=== PATIENT | female | born 1980 | race Caucasian/White ===

== ENCOUNTER → 2017-11-23 17:04 | Outpatient (CLI) | payer OTHER, SELFPAY ==
--- NOTE | 2017-11-23 | DI.MRI.S_ITS ---
PROCEDURE: MR KNEE RT WO CON INDICATIONS: RIGHT KNEE PAIN POST TRAUMA TECHNIQUE: Noncontrast sagittal PD fast spin echo and T2 fast spin echo with fat saturation, sagittal 3-D FLASH with fat saturation; coronal T1 spin echo and PD fast spin echo with fat saturation, and axial PD fast spin echo with fat saturation through the knee. COMPARISON: [facility], , KNEE 3V RIGHT, 08/10/2017, 17:26. FINDINGS: Image quality: Excellent. Menisci: The medial and lateral menisci demonstrate normal morphology and internal signal. The meniscal root ligaments appear intact. Cruciate ligaments: The posterior cruciate ligaments appears intact but the anterior cruciate ligament is disrupted through its middle and superior thirds. Medial structures: The medial collateral ligament appears edematous and mildly thickened, indicating strain or partial tear. The posterior oblique ligament, semimembranosus tendon insertions, oblique popliteal ligament, and meniscocapsular junction appear intact. Visualized portions of the pes anserinus tendons appear normal. No abnormal bursal fluid. Lateral structures: The lateral collateral ligament, long and short heads of the biceps femoris tendon appear intact. The popliteus tendon appears normal; the popliteofibular ligament appears intact. The posterosuperior and anteroinferior popliteomeniscal fascicles appear intact. The arcuate and fabellofibular ligaments appear intact, on either side of the lateral inferior geniculate artery. Iliotibial band appears normal. Anterior structures: The quadriceps and patellar tendons appear intact. Patellar alignment is normal. No femoral trochlear dysplasia or ventral trochlear prominence. No edema in the infrapatellar fat pad. Bones and cartilage: No bone marrow contusions or fractures. The cartilage of the medial and lateral femorotibial compartments, as well as the patellofemoral compartment, appears normal in thickness. Joint space: There is a mild excess of knee joint fluid, significantly diminished with reference to the prior plain film imaging of the knee 08/10/17. No Vital's cyst. Normal appearing synovial plicae are incidentally noted. IMPRESSION: Disruption of the anterior cruciate ligament, through its middle and upper thirds. Strain or partial tear of the medial collateral ligament. Appreciable improvement in previously present large joint effusion from plain film imaging 08/10/17. No fracture or meniscal tear is found. Dictated by: Compa Wagner M.D. on 11/26/2017 at 8:07 Approved by: Compa Wagner M.D. on 11/26/2017 at 8:12
== END ==
PROVIDERS: Visit Provider Nurse Practitioner Family
DX: S83.411A Sprain of medial collateral ligament of right knee, initial encounter (principal); S83.511A Sprain of anterior cruciate ligament of right knee, initial encounter; M25.561 Pain in right knee
CPT/HCPCS: 73721

== ENCOUNTER → 2020-08-24 09:28 | Outpatient (CLI) | payer BC, SELFPAY ==
[2020-08-24 10:05] LABS: COVID19 -Nasal RAPID Negative (Negative)
== END ==
PROVIDERS: Visit Provider Specialist
DX: Z20.822 Contact with and (suspected) exposure to COVID-19 (principal)
CPT/HCPCS: 87635; C9803

== ENCOUNTER 2020-08-25 11:07 | Day surgery (SDC) | payer BC, SELFPAY ==
[2020-08-24 12:32] VITALS: BMI 26.3
[2020-08-25] VITALS (16 sets, daily range): BP systolic 103–160; BP diastolic 47–107; PULSE 62–94; RESP 12–25; TEMP 36.5–36.8; O2SAT 94–100; BMI 26.3
--- NOTE | 2020-08-25 | PATH_ITS ---
[facility] Accession Number: [id number] . 01 Material submitted: . PART A: hemorrhoids - HEMORRHOID POSTERIOR MIDLINE PART B: anus - ANAL FISSURE BIOPSY PART C: hemorrhoids - HEMORRHOID ANTERIOR MIDLINE . 02 Diagnosis: A. Hemorrhoid Posterior Midline: Portion of hemorrhoid x1. Negative for dysplasia or malignancy. . B. Anal Fissure Biopsy: Portions of squamous mucosa and submucosa with patchy inflammation and reactive changes. Negative for dysplasia or malignancy. . C. Hemorrhoid Anterior Midline: Portion of hemorrhoid x1. Negative for dysplasia or malignancy. [facility] 08/31/2020 1324 Local . 02 Electronically signed: . Afshan Mendes MD, Pathologist NPI- [id number] . 01 Gross description: . A. The specimen is received in formalin, labeled hemorrhoids posterior midline, and consists of a 1.2 x 1.0 x 0.5 cm, baxter-tarango, wrinkled mucosal tissue fragment. The margin is inked blue. The specimen is serially sectioned and entirely submitted in cassette A1. B. The specimen is received in formalin, labeled anal fissure, and consists of four irregular baxter fragments of skin and soft tissue measuring 1.2 x 1.2 x 0.4 cm in aggregate. The specimen is entirely submitted in cassette B1. C. The specimen is received in formalin, labeled hemorrhoid anterior midline, and consists of a 1.9 x 1.5 x 0.5 cm, baxter-tarango, wrinkled mucosal tissue fragment. The margin is inked blue. The specimen is serially sectioned and entirely submitted in cassette C1. ([id number]) /Divya 08/28/2020 1547 Local . 02 Pathologist provided ICD-10: K64.9 . 02 CPT . 107970, 689126, 333079 Performed at: 01 [facility] [address] [place] [address], [place], [place] [id number] MD Iron Walsh MD Phone: [phone] Performed at: 02 [facility] [address] [place], [place] [id number] MD Anne Horan MD Phone: [phone]
[2020-08-25] MEDS: LACTATED RINGERS 1,000 ML 100 ML IV ×2 (11:58→14:56)
[2020-08-25] MEDS: ACETAMINOPHEN 325 MG TABLET 975 MG PO (12:53)
--- NOTE | 2020-08-25 13:02 | SUR.OPER ---
Prone on padded OR bed, head in foam head support, gel chest rolls, gel pad under knees, pillow under lower legs, toes free of pressure, arms secured on padded arm boards at <90 degrees abduction. Safety belt at thigh.
--- NOTE | 2020-08-25 13:28 | PM.PREOP ---
Pre-operative Note COVID-19 COVID-19 status: Negative Result date/Date tested (Pos, Neg/Pending): 08/24/20 Interval Note History & Physical reviewed/Exam performed by Physician: Yes Changes to H&P: Yes H&P completed within 30 days and has changed as indicated here:: Patient patient would rather not have a lateral insert and a sphincterotomy unless it is absolutely necessary. I explained to her that it is an operation that is probably never absolutely necessary. I would evaluate her however. She expressed desire unless absolutely necessary to continue medication and admitting that she may just be overly sensitive to pain. Explained to her that she would have to tolerate it and there is very little I could do other than wait for this to heal. She appeared to understand
[2020-08-25] MEDS: BUPIVACAINE 0.5% W/ EPI (PF) 30 ML VIAL INJ (14:10)
[2020-08-25] MEDS: DIBUCAINE 1% OINT 28 GM 1 APPLIC TOP (14:11)
--- NOTE | 2020-08-25 14:31 | PM.OP.1 ---
Operative Date/Time/Diagnoses Date of procedure: 08/25/20 Time of procedure: 14:31 Pre-op diagnosis: Anal pain severe. Posterior midline fissure. Post-op diagnosis: same (Internal hemorrhoids with possible recent thrombosis) Procedure & Clinicians Procedure: Fissurectomy and 2 column hemorrhoidectomy Same procedure as scheduled: Yes Indications: Patient with persistent severe pain despite treatment with nifedipine cream for an anal fissure. She was brought to the OR to rule out other pathology. Click Yes if Unassisted: Yes Anesthesia Type: General Operative Notes Findings: Two large columns of hemorrhoids that may have had some fairly recent thrombosis. These were excised it. There were located in the anterior and posterior midline. Patient also had a deep posterior midline anal fissure. There was exposed muscle in the base. Closure Type: not applicable Specimen(s): other (Two columns of hemorrhoids. Edges of fissure sent as fissure biopsies.) Prosthetic devices, grafts, tissues, transplants, or devices: None Estimated Blood Loss (mL): 50 Blood products transfused: none Procedure in detail: Patient was placed kerri-knife prone on the operating room table after undergoing general endotracheal anesthesia. She was prepped and draped in the usual fashion. Patient had obvious hemorrhoidal disease visible. Digital exam was remarkable only for some discrete thickening in the posterior midline and the visible hemorrhoids. There was no induration no palpable mass. [place] circular exam revealed 2 large hemorrhoids that may have had thrombosis within the last few weeks. They were quite large and just inside the anal verge. The posterior midline hemorrhoid was associated with the edge of the fissure. The fissure was quite deep and had visible muscle fibers across it. I began by lifting the posterior midline hemorrhoid off the underlying tissues and excising it. The defect was closed with a running 2 0 Vicryl suture. I excised the edge of the fissure and submitted it as fissure biopsy. The fissure was then closed with a running suture of Vicryl as well. There was a similar hemorrhoid without fissure in the anterior midline which was excised and closed in identical fashion to the 1st. No other pathology was seen. There were some other smaller internal hemorrhoids but I chose not to remove those at this time. They did not appear to have evidence of thrombosis. Local anesthetic was infiltrated in the area of the hemorrhoid excisions. Nupercainal with Gelfoam was inserted into the anal canal to help with postoperative pain. Dressing was applied the patient was placed back in her stretcher extubated taken recovery room in good condition. Complications: none Post-operative Condition: stable Disposition: PACU
[2020-08-25] MEDS: HYDROMORPHONE 2 MG INJ IV ×2 (14:51→14:58)
[2020-08-25] MEDS: OXYCODONE IR 5 MG TABLET PO ×2 (14:54→15:35)
[2020-08-25] MEDS: hydrOXYzine pamoate 25 MG CAPSULE PO (14:55)
--- NOTE | 2020-08-25 15:03 | SUR.PREOP ---
Addendum entered by Teresita Dewitt R.N. 08/25/20 15:05: Pt denies . Original Note: Same sex marriage, test deferred.
--- NOTE | 2020-08-25 15:07 | SUR.PHASEI ---
1505 hand-off to Iván Conway RN. Dressing CDI. Pt drowsy 1508 Pain 4/10 Pressure oriented, stating that she wants to celebrate that she woke up. Pain improving.
== END 2020-08-25 16:20 | disposition home or self-care (01) ==
PROVIDERS: PCP Naturopath; Referring Provider Naturopath; Visit Provider Specialist
PROC: (CPT 46080; principal; 2020-08-25 12:15)
DX: K62.89 Other specified diseases of anus and rectum (principal); K60.2 Anal fissure, unspecified; K64.8 Other hemorrhoids; I10 Essential (primary) hypertension
CPT/HCPCS: 46261; J0330; J1100; J1170; J2250; J2405; J3010